=== PATIENT | female | born 1975 | race Caucasian/White ===

== ENCOUNTER 2025-05-07 13:42 | Outpatient (CLI) | payer OTHER, SELFPAY ==
--- OUTSIDE RECORDS SUMMARY | 2025-05-07 13:30 | XMS_ITS | Encounter Summary ---
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 Phone Unavailable Primary Care Provider Unavailabl e Reason for Visit * Reason Comments Establish Care Encounter Details Date Type Department Care Team (Late st Contact Info) Description 05/07/2025 1:30 PM CDT Office Visit [facility]ology - [place] [address] [facility] [place] [address] [place] [address] Dante Barba MD [address] [facility] [address] [place] [address] Chronic anemia (Primary Dx) Social History Tobacco Use Types Packs/Day Years Used Date Smoking Tobacco: Former Cigarettes 0.5 4 Q uit: 05/07/2010 Smokeless Tobacco: Never Alcohol Use Standard Drinks/Week Comments Not Currently 0 (1 standard drink = 0.6 oz pur e alcohol) Comments No Sex and Gender Information Value Date Recorded Sex Assigned at Not on file Legal Sex Female 11:17 AM CDT Gender Identity Not on file Sexual Orientation Not on file documented as of this encounter Last Filed Vital Signs Vital Sign Reading Time Taken Comments Blood Pressure 138/78 05/07/2025 1:17 PM CDT Pulse 67 05/07/2025 1:14 PM CDT Temperature 36.8 C (98.3 F) 05/07/2025 1:14 PM CDT Respiratory Rate 16 05/07/2025 1:14 PM CDT Oxygen Saturation 96% 05/07/2025 1:14 PM CDT Inhaled Oxygen Concentration - - Weight 114.7 kg (252 lb 12.8 oz) 05/07/2025 1:14 PM CDT Height 160 cm (5' 3) 05/07/2025 1:14 PM CDT Body Mass Index 44.78 05/07/2025 1:14 PM CDT documented in this encounter Progress Notes * Dante Barba MD - 05/07/2025 1:23 PM CDT Hematology-oncology consult Note Requesting Physician Primary Care Physician No primary care provider on file. Problem list Patient Active Problem List Diagnosis Code General medical exam Z00.00 Post-op pain G89.18 Post-operative nausea and vomiting R11.2, Z98.890 Essential hypertension I10 Hypertriglyceridemia E78.1 Previous TREATMENT ? Measurable Disease ? Reason for Visit Lavonne Valenzuela is a 49 y.o. female who was referred for consultation for low ferritin. History of present illness This is a pleasant 49-year-old slightly obese female who has history of gastric sleeve surgery done in 2021 with almost 75 pound weight loss along with history of hypertension came into theoffice for low ferritin. She has been complaining of tiredness and fatigue. Denies any bleeding including melena hematochezia. Her menstrual bleeding used to be heavy but the last 1 was in January 2025 when the labs were done that showed ferritin of 7 and hemoglobin of 13. She is taking oral iron 325 mg along with vitamin C daily for almost 1 year duration. She has never received iron infusion and blood transfusion. She denies any diarrhea and constipation. Weight and appetite more recently is stable. No other new complaints. Past Medical History Past Medical History: Diagnosis Date GERD (gastroesophageal reflux disease) HTN (hypertension) Hyperlipidemia Motion sickness Obesity, unspecified Post-operative nausea and vomiting Wears contact lenses Surgical History Past Surgical History: Procedure Laterality Date HX SECTION HX TONSILLECTOMY [facility] R[facility]RICTIV PX LONGITUDINAL GASTRECTOMY N/A 03/30/2022 GASTRECTOMY LONGITUDINAL LAPAROSCOPIC performed by Alo Zavaleta MD at [facility] MAIN OR Medications Current Outpatient Medications Medication Sig Dispense Refill hydroCHLOROthiazide 25 mg tablet Take 25 mg by mouth. testosterone cypionate (DEPO-TESTOSTERONE) 200 mg/mL Oil ASCORBIC ACID, VITAMIN C, ORAL Take by mouth. progesterone micronized (PROMETRIUM) 200 mg Capsule Take 200 mg by mouth daily. MULTIVITAMIN magnesium carb,citrate,oxide (MAGNESIUM COMPLEX ORAL) No current facility-administered medications for this visit. Allergies No Known Allergies Immunizations: Immunization History Administered Date(s) Administered (PFIZER)(12 YR UP) COVID-19 VACCINE - EMERGENCY USE AUTHORIZATION, MRNA, [id number](PF) 30 MCG/0.3 MLIM SUSP 07/02/2020, 07/23/2020, 06/08/2021 (Pfizer Bivalent)(12 Yr Up) COVID-19 Vaccine - Emergency Use Authorization, MRNA, Lnp-S(Pf) 30 Mcg/0.3 Ml Susp 07/11/2022 Family History Family History Problem Relation Name Age of Onset Heart Disease Father Heart Disease Mother Melanoma Mother No Known Problems Sister No Known Problems Child Social History Social History Tobacco Use Smoking status: Former Current packs/day: 0.00 Average packs/day: 0.5 packs/day for 4.0 years (2.0 ttl pk-yrs) Types: Cigarettes Quit date: 05/07/2010 Years since quittin.0 Smokeless tobacco: Never Substance Use Topics Alcohol use: Not Currently Review of Systems Constitutional: Patient did not mention fever; no night sweats; no anorexia; 75 pound weight loss after the gastric sleeve surgery, complain of tiredness and fatigue NEENT: Patient did not mention headache; no change in vision; no change in hearing; no sore throat;no dysphagia Respiratory: Patient did not mention shortness of breath; no pleuritic chest pain; no cough; no hemoptysis Cardiac: Patient did not mention cardiac-like chest pain; no palpitations; no orthopnea; no PND; noDOE Breasts: Patient did not mention tenderness; no masses GI: Patient did not mention abdominal pain; no nausea; no vomiting; no diarrhea; no hematochezia; no melena : Patient did not mention dysuria; no frequency; no hesitancy; no hematuria DATA LIBRARIAN: Musculosketetal: Patient did not mention bone pain; no arthralgia; no joint swelling; no myalgia; Skin: Patient did not mention pruritis; no rash; no petechiae; no ecchymoses Endocrine: Patient did not mention polydipsia; no polyuria; no unusual weight gain Neuro: Patient did not mention headache; no change in vision; no sensory changes; no muscle weakness; no confusion; no seizures Psych: Patient did not mention anxiety; no depression; Physical Exam Vitals: As per nursing note Constitutional: Well developed, well nourished, no acute distress, non-toxic appearance Teeth and gum. No signs of infection or swelling. Eyes: PERRL, conjunctiva normal HEENT: Atraumatic, external ears normal, nose normal, oropharynx moist, no pharyngeal exudates. no sinus tenderness Neck- normal range of motion, no tenderness, supple Respiratory: No respiratory distress, normal breath sounds, no rales, no wheezing Cardiovascular: Normal rate, normal rhythm, no murmurs, no gallops, no rubs GI: Soft, nondistended, normal bowel sounds, nontender, no splenomegaly, no hepatomegaly, no mass, no rebound, no guarding : No costovertebral angle tenderness Musculoskeletal: No edema, no tenderness, no deformities. Back- no tenderness Integument: Well hydrated, no rash, Digits and nails inspection normal Lymphatic: No lymphadenopathy noted Neurologic: Alert & oriented x 3, CN 2-12 normal, normal motor function, normal sensory function, no focal deficits noted Psychiatric: Speech and behavior appropriate ? labs No results found for this or any previous visit (from the past 24 hours). Labs from January 31, 2025 showed ferritin 7 hemoglobin 13 WBC 8.9 platelets 290,000 vitamin B12 397 Pathology ? Imaging & Other Studies Performance Status? Assessment / Plan: ? Iron deficiency without anemia. Patient is a 49-year-old slightly obese female with history of hypertension and obesity who had gastric sleeve surgery done in 2021 with 75 pound weight loss. She denies being a vegetarian. She is quite symptomatic with tiredness and fatigue. Her menstrual bleeding used to be heavy but the last 1 was in January 2025. She is taking oral iron 325 mg daily withvitamin C. Her anemia is likely secondary to malabsorption from the previous gastric sleeve surgery. She denies any further menstrual blood loss. I will repeat the labs including CBC, CMP, iron profile, soluble transferrin receptor, vitamin B12 level and methylmalonic acid level. Based on the result we will decide about IV iron infusion and vitamin B12 injections. In the meantime she will continue oral iron 325 mg daily with vitamin C. I will discuss the labs with her in 1 week. I have answeredall the questions to patient's satisfaction. Hypertension. Patient is on hydrochlorothiazide. Postmenopausal symptoms. Patient is on progesterone along with testosterone. Thank you very much for allowing me to participate in Lavonne Valenzuela's evaluation and management. Please feel free to contact if I can be of any further assistance in your patient???s care requiringhematology or oncology evaluation. Sincerely, ? ? Dante Barba M.D. cell TOBACCO COUNSELING She is not a tobacco/nicotine user. Dante Barba MD ,05/07/2025 1:38 PM ? Total time spent 60 minutes, two third of the total time spent counseling patient [id number]. CC:? documented in this encounter Plan of Treatment Upcoming Encounters Date Type Department Care Team (Late st Contact Info) Description 05/14/2025 4:30 PM CDT Telephone Check Up [facility] - [place] [address] [facility] [address] [place] [address] Dante Barba MD [address] [facility] [address] [place] [address] Scheduled Orders Name Type Priority Associated Diagnoses Orde r Schedule CBC WITH DIFFERENTIAL Lab Stat Chronic anemia Expected: 05/07/2025, Expires: 05/07/2026 COMPREHENSIVE METABOLIC PANEL Lab Stat Chronic anemia Expected: 05/07/2025, Expires: 05/07/2026 FERRITIN Lab Routine Chronic anemia Expected: 05/07/2025, Expires: 05/07/2026 IRON, TIBC, AND PERCENT SATURATION Lab Routine Chronic anemia Expected: 05/07/2025, Expires: 05/07/2026 METHYLMALONIC ACID Lab Routine Chronic anemia Expected: 05/07/2025, Expires: 05/07/2026 VITAMIN B12 AND FOLATE Lab Routine Chronic anemia Expected: 05/07/2025, Expires: 05/07/2026 TRANSFERRIN RECEPTOR TFR SOLUBLE Lab Routine Chronic anemia Expected: 05/07/2025, Expires: 05/07/2026 documented as of this encounter Visit Diagnoses Diagnosis Chronic anemia- Primary Anemia, unspecified documented in this encounter
[2025-05-07 14:04] LABS: Hematocrit 42.9 % (37.0-47.0); Hemoglobin 13.6 g/dL (12.0-15.0); Immature Granulocyte Percent A 0.2 % (0-0.5); Lymphocytes Absolute Auto 2.35 K/mm3 (0.9-3.2); Mean Corpuscular HGB Conc 31.7 g/dl (32-36); Mean Corpuscular Hemoglobin 26.8 pg (26-34); Mean Corpuscular Volume 84.4 fl (80-100); Nucleated Red Blood Cells Absolute Auto 0.000 K/mm3 (0.0-0.012); Nucleated Red Blood Cells Perc 0.0 % (0.0-0.2); Platelet Count Result 273 k/mm3 (150-375); Red Blood Count 5.08 M/mm3 (4.2-5.4); White Blood Count 9.5 K/mm3 (4.5-10.0)
--- OUTSIDE RECORDS SUMMARY | 2025-05-07 14:48 | XMS_ITS | Clinical Summary ---
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 12/11/2024 Active progesterone micronized (PROMETRIUM) 200 mg Capsule Take 200 mg by mouth daily. Active testosterone cypionate (DEPO-TESTOSTERO NE) 200 mg/mL Oil 02/25/2025 Active MULTIVITAMIN Active magnesium carb,citrate,oxi de (MAGNESIUM COMPLEX ORAL) Active ASCORBIC ACID, VITAMIN C, ORAL Take by mouth. Active Active Problems Problem Noted Date Diagnosed Date General medical exam 03/31/2022 Post-op pain 03/31/2022 Post-operative nausea and vomiting 03/31/2022 Essential hypertension 03/31/2022 Hypertriglyceridemia 03/31/2022 Encounters Date Type Department Care Team Description 05/07/2025 1:30 PM CDT Office Visit [facility] - [place] [address] [place] [address] Dante Barba MD Chronic anemia (Primary Dx) from Last 3 Months Family History Medical History Relation Name Comments No Known Problems Child Heart Disease Father Heart Disease Mother Melanoma Mother No Known Problems Sister Relation Name Status Comments Child Alive Father Alive Mother Alive Sister Alive Social History Tobacco Use Types Packs/Day Years [...] on file Sexual Orientation Not on file Last Filed Vital Signs Vital Sign Reading [...] Mass Index 44.78 05/07/2025 1:14 PM CDT Plan of Treatment Upcoming Encounters Date Type Department Care Team (Late st Contact Info) Description 05/14/2025 4:30 PM CDT Telephone Check Up [facility] - [place] [address] [place] [address] [facility] [address] [place] [address] Dante Barba MD [address] [facility] [address] [place] [address] Health Maintenance Due Date Last Done Comments HEPATITIS B VACCINES (1 of 3 - 19+ 3-dose series) 09/19/1995 HPV/Cotest (21-29) 1997 CERVICAL CANCER SCREENING 2006 HPV/Cotest (30-65) 2006 PAP SMEAR 2006 DTAP/TDAP/TD VACCINES (1 - Tdap) 09/27/2014 09/27/19 15 COLORECTAL SCREENING 2021 Colorectal Cancer Screening 2021 FIT-DNA Q 3 years 2021 FIT/FOBT Q 1 year 2021 Flex Sig/CT Colonography Q 5 years 2021 INFLUENZA VACCINE (#1) 2025 04/30/2023 COVID-19 Vaccine ( - 2024-2 6 season) 2025 07/11/2022, 06/08/2021, 07/23/2020, Additional history exists BREAST CANCER SCREENING 10/14/2025 10/15/19, 10/14/2024, 07/23/2023, Additional history exists Preventative Visit- Commercial Completed 0 10/02/2024, 10/12/2023, 09/14/2022, Additional history exists Medical Devices Implanted Type Area Senior Cost Analyst Device Identifier Shelf Expiration Date Model / Serial / Lot Seamguard Endogia 60 Blk [id number] - [id number] Implanted:Qt y: 1 on 03/30/2022 by Alo Zavaleta MD at [facility] N/A: [employer] [id number] 10/10/2024 12BSGTRI 60B / / [id number] Seamguard Endogia 60 Blk [id number] - [id number] Implanted:Qt y: 1 on 03/30/2022 by Alo Zavaleta MD at [facility] N/A: [employer] [id number] 10/10/2024 12BSGTRI 60B / / [id number] Seamguard Endogia 60 Prpl [id number] - [id number] Implanted:Qt y: 1 on 03/30/2022 by Alo Zavaleta MD at [facility] N/A: [employer] [id number] 10/31/2024 12BSGTRI 60P / / [id number] Seamguard Endogia 60 Prpl [id number] - [id number] Implanted:Qt y: 1 on 03/30/2022 by Alo Zavaleta MD at [facility] N/A: [employer] [id number] 10/31/2024 [id number] 60P / / [id number] [place] [address] [address] [id number] [id number] RX [employer] Express [employer] RX [employer] (INTERNAL) [facility] [employer] [id number] Advance Directives For more information, please contact: [phone] * Full Code (Latest Code Status on File) Date Activated Date Inactivated Comments 03/30/2022 7:15 AM 03/31/2022 4:19 PM * Full Code Date Activated Date Inactivated Comments 03/30/2022 5:50 AM 03/30/2022 7:15 AM
[2025-05-07 16:27] LABS: Iron 31 ug/dL (37-170)
[2025-05-07 16:28] LABS: Alanine Aminotransferase 19 U/L (6-35); Albumin Level 4.7 g/dL (3.5-5.1); Alkaline Phosphatase 100 U/L (38-126); Anion Gap 8 mmol/L (4-12); Aspartate Amino Transferase 90 U/L (14-36); Bilirubin,Total 0.5 mg/dL (0.2-1.3); Blood Urea Nitrogen 13 mg/dL (7-17); Calcium 9.5 mg/dL (8.4-10.2); Carbon Dioxide 31 mmol/L (22-30); Chloride 100 mmol/L (98-107); Estimated Glomerular Filt Rate > 60; Glucose 77 mg/dL (65-110); Potassium 3.4 mmol/L (3.4-5.0); Sodium 139 mmol/L (137-145); Total Protein 8.1 g/dL (6.3-8.2)
[2025-05-07 16:36] LABS: Percent Iron Saturation 7 % (20-50)
[2025-05-07 17:08] LABS: Ferritin 10.90 ng/mL (6.24-137)
[2025-05-07 23:10] LABS: Vitamin B12 456.0 pg/mL (239-931)
== END 2025-05-07 13:43 | disposition home or self-care (01) ==
LOC: ANHLAB 13:49
PROVIDERS: PCP Nurse Practitioner; Visit Provider Internal Medicine Hematology & Oncology
DX: D64.9 Anemia, unspecified (principal)
CPT/HCPCS: 36415; 80053; 82607; 82728; 82746; 83540; 83550; 84238; 85025